=== PATIENT | male | born 1980 | race Caucasian/White ===

== ENCOUNTER → 2016-12-27 | Outpatient (CLI) | payer OTHER ==
--- NOTE | 2016-12-27 10:49 | REP ---
Clinical: Lumbago with left-sided sciatica. Comparison: 06/11/2009. Findings: Partial presumed sacralization at the L5 level is again appreciated representing a congenital variant. Disc space narrowing and endplate sclerosis at the L5-S1 level remain stable. The remainder of the examination is normal. No acute fracture / compression injury or subluxation. Alignment and lordosis maintained. No spondylolysis or spondylolisthesis appreciated. Impression: Congenital sacralization of L5-S1. Stable endplate sclerosis and disc space narrowing at L5-S1 unchanged. Remainder examination is normal. Signed by Ed Villarreal MD 12/27/2016 10:40 A
== END ==
LOC: M ADAMS 09:44
PROVIDERS: ATTEND Physician Assistant
DX: Q76.49 Other congenital malformations of spine, not associated with scoliosis (principal)

== ENCOUNTER 2017-08-16 06:52 | Inpatient (IN) | payer OTHER ==
[2017-08-16] MEDS ORDERED: ROCURONIUM BROMIDE 50 MG/5 ML VIAL As Ordered ×3 (07:34→10:39)
[2017-08-16] MEDS ORDERED: PROPOFOL 200 MG/20 ML VIAL As Ordered (07:34)
[2017-08-16] MEDS ORDERED: fentaNYL 100 MCG/2 ML INJECTION (J3010) As Ordered (07:35)
[2017-08-16] MEDS ORDERED: MIDAZOLAM INJ 2 MG/2 ML VIAL (J2250) As Ordered (07:35)
[2017-08-16] MEDS ORDERED: LIDOCAINE 2% INJ 100 MG/5 ML SDV (FOR ANES.) As Ordered (07:37)
[2017-08-16] MEDS: LR 1,000 ML IV ×2 (07:52→14:45)
[2017-08-16] MEDS: PREGABALIN 75 MG CAP(LYRICA) PO (08:02)
[2017-08-16] MEDS: PERCOCET 5MG/325MG TAB PO ×3 (08:02→20:04)
[2017-08-16] MEDS: LIDOCAINE W/EPINEPHRINE 1% 20ML VIAL As Ordered (09:16)
[2017-08-16] MEDS: BUPIVACAINE HCL 0.5% 10 ML VIAL As Ordered (09:16)
[2017-08-16] MEDS ORDERED: PHENYLephrine HCL 500 MCG/5 ML (100MCG/ML) SYRINGE (J2370) As Ordered ×2 (10:15→10:39)
[2017-08-16] MEDS: BACITRACIN PWD 50,000 UNITS VIAL As Ordered (10:54)
[2017-08-16] MEDS: VANCOMYCIN HCL 500 MG/10 ML VIAL (J3370) As Ordered (10:54)
[2017-08-16] MEDS: THROMBIN SOLN 20,000 UNITS KIT As Ordered (10:54)
[2017-08-16] MEDS ORDERED: ONDANSETRON 4MG/2ML VIAL (J2405) As Ordered (12:29)
[2017-08-16] MEDS ORDERED: METOCLOPRAMIDE INJ 10MG/2ML VIAL (J2765) As Ordered (12:29)
[2017-08-16] MEDS ORDERED: dexameTHASONE 4 MG/ML 1ML VIAL (J1100) As Ordered (12:29)
[2017-08-16] MEDS: ceFAZolin 2 GM/D5W 50 ML IV BAG (J0690 PER 500MG) As Ordered (13:30)
[2017-08-16] MEDS: BUPIVACAINE LIPOSOME/PF 1.3% 20 ML VIAL (13.3MG/ML)(EXPAREL) As Ordered (13:44)
[2017-08-16] MEDS ORDERED: METOCLOPRAMIDE INJ 10MG/2ML VIAL (J2765) IV (14:45)
[2017-08-16] MEDS ORDERED: MEPERIDINE INJ 25 MG/ML VIAL (J2175) IV (14:45)
[2017-08-16] MEDS ORDERED: fentaNYL 100 MCG/2 ML INJECTION (J3010) IV (14:45)
[2017-08-16] MEDS ORDERED: PERCOCET 5MG/325MG TAB PO ×4 (14:45→16:30)
[2017-08-16] MEDS ORDERED: ONDANSETRON 4MG/2ML VIAL (J2405) IV (14:45)
[2017-08-16] MEDS ORDERED: CYCLOBENZAPRINE 10 MG TAB PO (15:15)
[2017-08-16] MEDS ORDERED: PROMETHAZINE INJ 25 MG/ML VIAL (J2550) IV (15:15)
[2017-08-16] MEDS ORDERED: HYDROmorphone HCL 1 MG/ML SYRINGE (J1170) IV ×2 (15:30)
[2017-08-17] MEDS: PERCOCET 5MG/325MG TAB PO ×3 (02:00→11:35)
[2017-08-17] MEDS: ASPIRIN 81 MG ENTERIC TAB PO (08:13)
== END 2017-08-17 13:00 | disposition home or self-care (01) | DRG 304 ==
LOC: M OR 06:52 → M MS5PR 15:45
PROC: 0SG00Z1 (ICD-10-PCS; principal; 2017-08-16 08:28)
PROC: 0SG00AJ Fusion of Lumbar Vertebral Joint with Interbody Fusion Device, Posterior Approach, Anterior Column, Open Approach (ICD-10-PCS; 2017-08-16 08:28)
PROC: 0QB30ZZ Excision of Left Pelvic Bone, Open Approach (ICD-10-PCS; 2017-08-16 08:28)
DX: M43.02 Spondylolysis, cervical region (principal)

== ENCOUNTER 2019-06-25 09:48 | Inpatient (IN) | payer OTHER ==
[~2019-06-25] VITALS: Ht 180.3 cm; Wt 85.5 kg
[2019-06-25 10:30] LABS: BASO % 0.2 % (0.0-1.0); EOS # 0.2 10^3/uL (0.0-0.5); EOS % 1.2 % (0.0-3.0); HEMATOCRIT 43.8 % (42.0-52.0); LYMPH # 1.5 10^3/uL (1.5-5.0); LYMPH % 11.4 % (24.0-44.0); MEAN CORPUSCULAR HEMOGLOBIN 30.1 pg (27.0-33.0); MEAN CORPUSCULAR HGB CONC 34.2 g/dl (32.0-36.5); MEAN CORPUSCULAR VOLUME 87.8 fl (80.0-96.0); MONO # 1.7 10^3/uL (0.0-0.8); MONO % 12.9 % (0.0-5.0); NEUTROPHILS # 9.9 10^3/uL (1.5-8.5); NEUTROPHILS % 73.9 % (36.0-66.0); PLATELET COUNT, AUTOMATED 306 10^3/uL (150-450); RED BLOOD COUNT 4.99 10^6/uL (4.30-6.10); WHITE BLOOD COUNT 13.4 10^3/uL (4.0-10.0)
[2019-06-25 10:42] LABS: ALBUMIN 3.8 GM/DL (3.2-5.2); BILIRUBIN,DIRECT 0.2 MG/DL (0.0-0.2); BILIRUBIN,TOTAL 1.1 MG/DL (0.2-1.0); TOTAL PROTEIN 7.6 GM/DL (6.4-8.2)
[2019-06-25] MEDS ORDERED: ISOVUE-370 76% 100ML VIAL (Q9967) As Ordered ONE (14:19)
[2019-06-25] MEDS ORDERED: CIPROFLOXACIN 400 MG in IV 1 EA IV ONE (15:30)
[2019-06-25] MEDS ORDERED: metroNIDAZOLE 500 MG in IV 1 EA IV ONE (15:30)
--- NOTE | 2019-06-25 15:54 | REP ---
REASON: Pain. KUB: FINDINGS: KUB shows the intestinal gas pattern to be nonspecific. The organ silhouettes insofar as delineated are unremarkable. There is no evidence of free intraperitoneal air. Incidental note is made of bilateral pelvic phleboliths. IMPRESSION: Nonspecific. Electronically Signed by Chacho Olson DO 06/25/2019 04:03 P
--- NOTE | 2019-06-25 16:23 | HPEPDOC ---
General Date of Admission Jun 25, 2019 at 15:57 Date of Service: Jun 25, 2019 Chief Complaint The patient is a 39-year-old male who presented to the ER with complaints of abdominal pain. History of Present Illness Patient is a 39 year old male with a PMHx of GERD who presented to the ER with complaints of abdominal pain. Patient was that hes been experiencing suprapubic abdominal pain that he reports is an 8/10, worse when he strains himself during a bowel movement. Notes that his pain subsides when he rests. Patient reports that hes been experiencing Patient has reported diarrhea 7 days ago, and has been taking Imodium to help alleviate his symptoms. After several days he noted constipation and decided to take laxatives to help alleviate those symptoms. Patient is been experiencing loose stools at this point. Denies any watery stools. Patient is unaware of any fevers at home. He does report extensive chills and night sweats. Patient denies chest pain, shortness of breath, cough or any palpitations. He does report a significant decrease in his appetite over the last 7 days and is unsure of any changes in his weight. Home Medications No Active Prescriptions or Reported Meds Allergies Coded Allergies: No Known Allergies (Unverified , 08/16/17) Past Medical History Medical History GERD Surgical History L4/5 fusion with disc replacement done by Dr. Braun 08/2017 Family History - Mother with a history of hypertension - Father with a history of hypertension and kidney stones - No history of malignancies Social History - Denies the use of tobacco or illicit drugs; patient reports social alcohol consumption - Denies recent travel; reports that his has been experiencing fevers - Lives with and children - Occupation; patient works as an habilitation assistant at [employer] Review of Systems Other systems 10 point review of systems complete, all negative otherwise stated in HPI Vital Signs - Vitals: BP 135/80, HR 98, RR 18, Sat 99%RA, Temp 97.8F - General: Lying in bed, No acute distress, Speaking in full sentences, AAOx3 - HEENT: NC, AT, PERRLA, EOMI - CVS: RRR, +S1S2 - Lungs: Fair air entry bilaterally, No appreciable wheezing / rales / rhonchi - Abdomen: Soft, Non-distended, tenderness on deep palpation of left lower quadrant, no guarding or rigidity noted, bowel sounds are present in all 4 quadrants - Extremities: No lower extremity edema, No calf tenderness - Neuro: No focal motor or sensory deficit - Skin: No visible rashes Laboratory Data Labs 24H Laboratory Tests 2 06/25/19 10:06: Immature Granulocyte % (Auto) 0.4, Neutrophils (%) (Auto) 73.9H, Lymphocytes (%) (Auto) 11.4L, Monocytes (%) (Auto) 12.9H, Eosinophils (%) (Auto) 1.2, Basophils (%) (Auto) 0.2, Neutrophils # (Auto) 9.9H, Lymphocytes # (Auto) 1.5, Monocytes # (Auto) 1.7H, Eosinophils # (Auto) 0.2, Basophils # (Auto) 0.0, Nucleated Red Blood Cells % (auto) 0.0, Total Bilirubin 1.1H, Direct Bilirubin 0.2, Aspartate Amino Transf (AST/SGOT) 14, Alanine Aminotransferase (ALT/SGPT) 15, Alkaline Phosphatase 70, Total Protein 7.6, Albumin 3.8, Albumin/Globulin Ratio 1.00, Amylase Level 34, Lipase 64L 06/25/19 10:11: POC Glucose (Misc Panel) 109H, POC Sodium (Misc Panel) 139, POC Potassium (Misc Panel) 3.9, POC Chloride (Misc Panel) 100, POC Total CO2 (Misc Panel) 29.0H, POC Blood Urea Nitrogen (Misc Panel 11, POC Ionized Calcium (Misc Panel) 4.6, POC Creatinine (Misc Panel) 1.0, POC Hematocrit (Misc Panel) 44.0 06/25/19 13:10: Urine Color YELLOW, Urine Appearance HAZY, Urine pH 7.0, Urine Specific [place] 1.014, Urine Protein NEGATIVE, Urine Glucose (UA) NEGATIVE, Urine Ketones NEGATIVE, Urine Blood NEGATIVE, Urine Nitrite NEGATIVE, Urine Bilirubin NEGATIVE, Urine Urobilinogen 0.2, Urine Leukocyte Esterase NEGATIVE, Urine WBC (Auto) 1, Urine RBC (Auto) 7H, Urine Hyaline Casts (Auto) 0, Urine Bacteria (Auto) NEGATIVE, Urine Squamous Epithelial Cells 0, Urine Sperm (Auto) CBC/BMP Laboratory Tests 06/25/19 10:06 Microbiology Microbiology 06/25/19 Gastrointestinal Tract Panel (PCR) - Final, Complete Plan / VTE VTE Prophylaxis Ordered?: Yes Plan Plan Abdominal pain - likely 2/2 - Patient is presented to the emergency room with complaints of 7 days of abdominal pain - Has experienced intermittent diarrhea and constipation - Currently is hemodynamically stable and afebrile - Leukocytosis noted; will check lactic acid - XR abdomen 06/24: no abnormalities noted on preliminary report - CT abdomen / pelvis 06/24: sig colon diverticulitis w\large tic v walled off perf. no free air based on preliminary report - At this point, will continue with intra-abdominal coverage with ceftriaxone and Flagyl (Day #1) - Case has been discussed with Dr. Shahid; who will be on consult; He was present in the ER, evaluating patient - Will continue with medical management and will get repeat imaging - Will start clear liquid diet GERD - Will start Omeprazole DVT prophylaxis - Will start Lovenox CLIFFORD OLIVA MD Jun 25, 2019 16:23
[2019-06-25] MEDS ORDERED: MORPHINE 2 MG/ML 1ML VIAL (J2270) IV PRN (16:30)
[2019-06-25 17:15] VITALS: BP 122/74
[2019-06-25] MEDS: NS 1,000 ML IV SCH (17:52)
[2019-06-25 20:00] VITALS: BP 126/72
[2019-06-25] MEDS: OMEPRAZOLE 20 MG CAP PO SCH (20:19)
[2019-06-25] MEDS: cefTRIAXone SOD 2 GM in D5W MINI-BAG PLUS 50 ML IV SCH (20:19)
[2019-06-25] MEDS: metroNIDAZOLE 500 MG in IV 1 EA IV SCH (22:58)
[2019-06-26] MEDS: NS 1,000 ML IV SCH ×4 (01:59→18:10)
[2019-06-26 02:00] VITALS: BP 110/60
[2019-06-26] MEDS: metroNIDAZOLE 500 MG in IV 1 EA IV SCH ×3 (06:57→22:58)
[2019-06-26 07:26] LABS: BASO % 0.2 % (0.0-1.0); EOS # 0.2 10^3/uL (0.0-0.5); EOS % 1.2 % (0.0-3.0); HEMATOCRIT 44.1 % (42.0-52.0); HEMOGLOBIN 14.9 g/dl (13.5-17.5); LYMPH # 1.7 10^3/uL (1.5-5.0); LYMPH % 10.3 % (24.0-44.0); MEAN CORPUSCULAR HEMOGLOBIN 30.5 pg (27.0-33.0); MEAN CORPUSCULAR HGB CONC 33.8 g/dl (32.0-36.5); MEAN CORPUSCULAR VOLUME 90.2 fl (80.0-96.0); MONO % 12.4 % (0.0-5.0); NEUTROPHILS # 12.3 10^3/uL (1.5-8.5); NEUTROPHILS % 75.5 % (36.0-66.0); PLATELET COUNT, AUTOMATED 301 10^3/uL (150-450); RED BLOOD COUNT 4.89 10^6/uL (4.30-6.10); WHITE BLOOD COUNT 16.3 10^3/uL (4.0-10.0)
[2019-06-26 07:51] LABS: BLOOD UREA NITROGEN 10 MG/DL (7-18); CALCIUM LEVEL 8.7 MG/DL (8.5-10.1); CARBON DIOXIDE LEVEL 29 MEQ/L (21-32); CHLORIDE LEVEL 105 MEQ/L (98-107); CREATININE FOR GFR 0.98 MG/DL (0.70-1.30); GLOMERULAR FILTRATION RATE > 60.0 (>60); GLUCOSE, FASTING 107 MG/DL (70-100); MAGNESIUM LEVEL 2.2 MG/DL (1.8-2.4); SODIUM LEVEL 140 MEQ/L (136-145)
[2019-06-26 08:00] VITALS: BP 124/67
--- NOTE | 2019-06-26 08:10 | REP ---
REASON: Abdominal pain, possible diverticulitis. COMPARISON: 08/13/2005, the latest prior. CONTRAST: 100 mL of Isovue, 370. The lung bases are clear. The liver, gallbladder, spleen, pancreas, adrenal glands and kidneys are within normal limits. Borderline sized left para-aortic lymph nodes are present, however, they retain their fatty raven and reniform shape. The abdominal aorta is within normal limits. The intra-abdominal bowel loops are within normal limits. There are no free fluid or free air. CT PELVIS: There is perisigmoidal fatty infiltration and right-sided sigmoidal wall thickening. There is a central air density within this mesenteric region. There is no pelvic adenopathy or mass. There is a small amount of free pelvic fluid. Bone window technique throughout the exam shows postoperative changes involving the first sacral segment and fifth lumbar vertebral body. Trans pedicular screws are seen bilaterally at those levels. IMPRESSION: 1. There is sigmoid colon diverticulitis. The air density seen in the mesentery on the right of sigmoid colon could be either secondary to a large diverticulum or a diverticular perforation which has walled itself off with inflammatory mesenteric changes. 2. There is a small amount of free pelvic fluid likely post inflammatory. 3. Other findings as described above. Electronically Signed by Chacho Olson DO 06/26/2019 01:29 P
[2019-06-26] MEDS: ENOXAPARIN 40 MG/0.4 ML SYRINGE (J1650) SC SCH (08:59)
[2019-06-26] MEDS: OMEPRAZOLE 20 MG CAP PO SCH (08:59)
[2019-06-26] MEDS ORDERED: ONDANSETRON 4MG/2ML VIAL (J2405) IV PRN (11:00)
--- NOTE | 2019-06-26 11:02 | IPNPDOC ---
Text Note Date of Service The patient was seen on 06/26/19. NOTE Subjective: Patient is a 39 year old male with a PMHx of GERD who presented to the ER with complaints of abdominal pain. Patient was that hes been experiencing suprapubic abdominal pain that he reports is an 8/10, worse when he strains himself during a bowel movement. Notes that his pain subsides when he rests. Patient has reported diarrhea 7 days ago, and has been taking Imodium to help alleviate his symptoms. After several days he noted constipation and decided to take laxatives to help alleviate those symptoms. Patient is been experiencing loose stools at this point. Denies any watery stools. Patient is unaware of any fevers at home. He does report extensive chills and night sweats. Patient was imaging. Hospitalist service for further evaluation and treatment. Patient was seen and examined at the bedside. Patient notes that he's had an uneventful evening. Denies nausea, vomiting, reports that his abdominal discomfort is tolerable has been having some bowel movements. Denies any urinary discomfort. Denies chest pain, shortness of breath or palpitations. Objective: Vitals (See below) General: Lying in bed, no acute distress, comfortable, AAOx3 HEENT: NC, AT CVS: RRR, +S1S2 Lungs: Fair air entry b/l, -w/r/r Abdomen: Soft, remains nondistended, tenderness is appreciated. Left lower quadrant upon deep palpation Extremities: LE are free of edema, - Calf tenderness Assessment and plan: Abdominal pain - likely 2/2 acute diverticulitis with possible diverticular perforation that remains walled off with inflammatory mesenteric changes - Clinically notes that he feels fine, pain tolerable, tolerating diet - Currently is hemodynamically stable and afebrile - Leukocytosis trending up; Lactic acid normal - XR abdomen 06/24: no abnormalities noted on preliminary report - CT abdomen / pelvis 06/24: 1. There is sigmoid colon diverticulitis. The air density seen in the mesentery on the right of sigmoid colon could be either secondary to a large diverticulum or a diverticular perforation which has walled itself off with inflammatory mesenteric changes. 2. There is a small amount of free pelvic fluid likely post inflammatory. 3. Other findings as described above. - c/w intra-abdominal coverage with Ceftriaxone and Flagyl (Day #2) - Dr. Shahid; who will be on consult; appreciate their input; no indications for surgery at this time - Will likely require repeat imaging within 24-48 hours - c/w symptomatic control - c/w clear liquid diet for now GERD - c/w Omeprazole DVT prophylaxis - c/w Lovenox VS,Fishbone, I+O VS, Fishbone, I+O Laboratory Tests 06/26/19 07:05 Vital Signs Date Time Temp Pulse Resp B/P (MAP) Pulse Ox O2 Delivery O2 Flow Rate FiO2 06/26/19 08:00 98.3 84 18 124/67 (86) 99 Room Air l I&O- Last 24 Hours up to 6 AM 06/26/19 05:59 Intake Total 1980 ml Output Total 900 ml Balance 1080 ml CLIFFORD OLIVA MD Jun 26, 2019 11:02
[2019-06-26 16:00] VITALS: BP 130/76
[2019-06-26] MEDS: ACETAMINOPHEN TAB 650MG DOSE (2X325MG) PO PRN (18:13)
[2019-06-26] MEDS: cefTRIAXone SOD 2 GM in D5W MINI-BAG PLUS 50 ML IV SCH (20:08)
[2019-06-27] MEDS: NS 1,000 ML IV SCH (02:30)
[2019-06-27 04:00] VITALS: BP 112/59
[2019-06-27] MEDS: GASTROGRAFIN SOLUTION 30ML PO SCH ×2 (06:49→07:33)
[2019-06-27] MEDS: metroNIDAZOLE 500 MG in IV 1 EA IV SCH (06:49)
[2019-06-27 07:14] LABS: BASO % 0.2 % (0.0-1.0); EOS # 0.2 10^3/uL (0.0-0.5); EOS % 2.1 % (0.0-3.0); HEMATOCRIT 37.8 % (42.0-52.0); HEMOGLOBIN 12.5 g/dl (13.5-17.5); LYMPH # 1.7 10^3/uL (1.5-5.0); MEAN CORPUSCULAR HEMOGLOBIN 29.7 pg (27.0-33.0); MEAN CORPUSCULAR HGB CONC 33.1 g/dl (32.0-36.5); MEAN CORPUSCULAR VOLUME 89.8 fl (80.0-96.0); MONO # 1.2 10^3/uL (0.0-0.8); MONO % 11.2 % (0.0-5.0); NEUTROPHILS # 7.9 10^3/uL (1.5-8.5); NEUTROPHILS % 71.1 % (36.0-66.0); PLATELET COUNT, AUTOMATED 271 10^3/uL (150-450); RED BLOOD COUNT 4.21 10^6/uL (4.30-6.10); WHITE BLOOD COUNT 11.1 10^3/uL (4.0-10.0)
[2019-06-27 07:30] LABS: BLOOD UREA NITROGEN 8 MG/DL (7-18); CALCIUM LEVEL 8.6 MG/DL (8.5-10.1); CARBON DIOXIDE LEVEL 30 MEQ/L (21-32); CHLORIDE LEVEL 111 MEQ/L (98-107); CREATININE FOR GFR 0.87 MG/DL (0.70-1.30); GLOMERULAR FILTRATION RATE > 60.0 (>60); GLUCOSE, FASTING 92 MG/DL (70-100); MAGNESIUM LEVEL 2.1 MG/DL (1.8-2.4); SODIUM LEVEL 141 MEQ/L (136-145)
[2019-06-27 08:00] VITALS: BP 129/78
[2019-06-27] MEDS ORDERED: ISOVUE-370 76% 100ML VIAL (Q9967) As Ordered ONE (08:20)
[2019-06-27] MEDS: OMEPRAZOLE 20 MG CAP PO SCH (08:54)
[2019-06-27] MEDS: ENOXAPARIN 40 MG/0.4 ML SYRINGE (J1650) SC SCH (08:54)
[2019-06-27] MEDS: ACETAMINOPHEN TAB 650MG DOSE (2X325MG) PO PRN (08:59)
[2019-06-27] MEDS ORDERED: CEFDINIR 300 MG CAP (OMNICEF) PO SCH (09:00)
--- NOTE | 2019-06-27 10:01 | REP ---
CT ABDOMEN AND PELVIS WITH IV AND ORAL CONTRAST: HISTORY: Followup diverticulitis. Comparison CT study June 25, 2019. CT CONTRAST DOSE: 100 mL of intravenous Isovue 370. CT FINDINGS: Preliminary digital defect repairer glassware radiograph demonstrates fusion hardware at the L4-5 level in the lumbar spine. Bowel gas pattern is normal. The lung bases remain clear. No focal liver or spleen lesion is seen. No abnormalities noted in the gallbladder or the pancreas. There is an accessory splenule adjacent to the pancreatic tail. No adrenal lesion is seen. The kidneys enhance symmetrically and are morphologically intact. Small and large bowel loops are unremarkable in the upper abdomen. There are two or three left periaortic lymph nodes again noted unchanged from the study done June 24. These are consistent with reactive nodes. Pelvic CT images again demonstrate diverticulitis pattern affecting the sigmoid colon in the central pelvis. There is pericolonic stranding and mural thickening. There are three bubbles of mural and pericolonic gas with some surrounding edema along the right lateral and superior margin of the affected segment of sigmoid colon. The amount of gas is improved from the prior study. No walled off fluid collection is appreciated. The prior study showed some adjacent fluid along the right pelvic sidewall. This is no longer present. There is a dystrophic calcification in the prostate. Urinary bladder is unremarkable. There is no evidence of free intraperitoneal air or other abnormal fluid collection. IMPRESSION: Acute diverticulitis pattern in the pelvis with less adjacent fluid and a decrease in the amount of mural and pericolonic gas. No walled off abscess seen. No free air noted. Electronically Signed by Parviz Clark MD 06/27/2019 10:01 A
[2019-06-27] MEDS ORDERED: CEFD300CAP PO (10:13)
[2019-06-27] MEDS ORDERED: DICY20TA11 PO (10:13)
[2019-06-27] MEDS ORDERED: FLAG500T PO (10:13)
--- NOTE | 2019-06-27 10:56 | DS.PDOC ---
Discharge Summary General Date of Admission Jun 25, 2019 at 15:57 Date of Discharge 06/27/2019 Discharge Summary PROCEDURES PERFORMED DURING STAY: [None]. ADMITTING DIAGNOSES / DISCHARGE DIAGNOSES: Abdominal pain - likely 2/2 acute diverticulitis with possible diverticular perforation that remains walled off with inflammatory mesenteric changes GERD DVT prophylaxis COMPLICATIONS/CHIEF COMPLAINT: Abdominal pain HISTORY OF PRESENT ILLNESS: Patient is a 39 year old male with a PMHx of GERD who presented to the ER with complaints of abdominal pain. Patient was that hes been experiencing suprapubic abdominal pain that he reports is an 8/10, worse when he strains himself during a bowel movement. Notes that his pain subsides when he rests. Patient has reported diarrhea 7 days ago, and has been taking Imodium to help alleviate his symptoms. After several days he noted constipation and decided to take laxatives to help alleviate those symptoms. Patient is been experiencing loose stools at this point. Denies any watery stools. Patient is unaware of any fevers at home. He does report extensive chills and night sweats. Patient was imaging. Hospitalist service for further evaluation and treatment. HOSPITAL COURSE: Abdominal pain - likely 2/2 acute diverticulitis with possible diverticular perforation that remains walled off with inflammatory mesenteric changes - Patient has reported resolution of his abdominal pain still reports some spasms,; has been tolerating a diet - Remains hemodynamically stable and afebrile - Leukocytosis improving; Lactic acid normal - XR abdomen 06/24: no abnormalities noted on preliminary report - CT abdomen / pelvis 06/24: 1. There is sigmoid colon diverticulitis. The air density seen in the mesentery on the right of sigmoid colon could be either secondary to a large diverticulum or a diverticular perforation which has walled itself off with inflammatory mesenteric changes. 2. There is a small amount of free pelvic fluid likely post inflammatory. 3. Other findings as described above. - CT abdomen / pelvis 06/26: Acute diverticulitis pattern in the pelvis with less adjacent fluid and a decrease in the amount of mural and pericolonic gas. No walled off abscess seen. No free air noted. - Will start Cefdinir and Flagyl, Will DC Ceftriaxone and Flagyl IV (Antibiotic day #3 - will complete course as an outpatient) - Dr. Shahid; who will be on consult; appreciate their input; no indications for surgery at this time - Will have outpatient follow-up with Dr. Shahid and Bailey Yoon within 7 days GERD - c/w Omeprazole DVT prophylaxis - c/w Lovenox DISCHARGE MEDICATIONS: Please see below. ALLERGIES: Please see below. PHYSICAL EXAMINATION ON DISCHARGE: Vitals (See below) General: Lying in bed, no acute distress, comfortable, AAOx3 HEENT: NC, AT CVS: +S1S2 Lungs: Fair air entry b/l, auscultation is free of rhonchi, wheezing or crackles Abdomen: Abdomen, again, remained soft, without any distention upon deep palp ation of any 4 quadrants there is no tenderness noted Extremities: No edema is appreciated. Lower extremities, - Calf tenderness LABORATORY DATA: Please see below. ACTIVITY: [As tolerated]. DISCHARGE PLAN: Follow up with Dr. Campbell Yoon and Dr. Shahid within 7 days Remain compliant with treatment plan and medications Return to the ER if you experience any problems DISPOSITION: Home DISCHARGE CONDITION: [Stable]. TIME SPENT ON DISCHARGE: 35 minutes Vital Signs/I&Os Vital Signs Date Time Temp Pulse Resp B/P (MAP) Pulse Ox O2 Delivery O2 Flow Rate FiO2 06/27/19 08:00 98.4 82 18 129/78 (95) 100 Room Air I&O- Last 24 Hours up to 6 AM 06/27/19 06:00 Intake Total 4750 ml Output Total 3580 ml Balance 1170 ml Laboratory Data Labs 24H Laboratory Tests 2 06/27/19 06:41: Immature Granulocyte % (Auto) 0.4, Neutrophils (%) (Auto) 71.1H, Lymphocytes (%) (Auto) 15.0L, Monocytes (%) (Auto) 11.2H, Eosinophils (%) (Auto) 2.1, Basophils (%) (Auto) 0.2, Neutrophils # (Auto) 7.9, Lymphocytes # (Auto) 1.7, Monocytes # (Auto) 1.2H, Eosinophils # (Auto) 0.2, Basophils # (Auto) 0.0, Nucleated Red Blood Cells % (auto) 0.0, Anion Gap 0L, Glomerular Filtration Rate > 60.0, Calcium Level 8.6, Magnesium Level 2.1 CBC/BMP Laboratory Tests 06/27/19 06:41 Microbiology Microbiology 06/25/19 Gastrointestinal Tract Panel (PCR) - Final, Complete Discharge Medications Scheduled Cefdinir (Cefdinir) 300 Mg Capsule, 300 MG PO BID Metronidazole (Flagyl) 500 Mg Tablet, 500 MG PO TID Scheduled PRN Dicyclomine HCl (Dicyclomine HCl) 20 Mg Tablet, 1 TAB PO TID PRN for SPASMS Allergies Coded Allergies: No Known Allergies (Unverified , 08/16/17) CLIFFORD OLIVA MD Jun 27, 2019 10:56
[2019-06-27] MEDS ORDERED: DICYCLOMINE 10 MG CAP PO PRN (11:00)
[2019-06-27] MEDS ORDERED: metroNIDAZOLE (FLAGYL) 500 MG TAB PO SCH (16:00)
== END 2019-06-27 14:35 | disposition home or self-care (01) | DRG 392 ==
LOC: M ED 09:48 → M ED INP 15:57 → M PED 17:05
PROVIDERS: ADMIT Internal Medicine; ATTEND Internal Medicine
DX: K57.80 Diverticulitis of intestine, part unspecified, with perforation and abscess without bleeding (principal); K21.9 Gastro-esophageal reflux disease without esophagitis; D72.829 Elevated white blood cell count, unspecified

== ENCOUNTER → 2021-11-03 | Outpatient (CLI) | payer OTHER ==
[~2021-11-03] MED LIST: CEFD300CAP PO; DICY20TA20 PO; FLAG500T PO
== END ==
LOC: M PLAIMG 15:37
PROVIDERS: ATTEND Physician Assistant Medical
DX: M54.12 Radiculopathy, cervical region (principal); M25.78 Osteophyte, vertebrae

== ENCOUNTER → 2024-07-07 | Outpatient (CLI) | payer OTHER | LOC: M RAD 12:32 | PROVIDERS: ATTEND Physician Assistant Medical | DX: M50.222 Other cervical disc displacement at C5-C6 level (principal); M47.812 Spondylosis without myelopathy or radiculopathy, cervical region ==